=== PATIENT | male | born 1955 | race Two or more races ===

== ENCOUNTER 2020-03-26 03:15 | Inpatient (IN) | payer OTHER ==
[2020-03-26 03:24] VITALS: TEMP 98.3; BMI 32.8
[2020-03-26] MEDS ORDERED: FAMOTIDINE 20 MG TABLET PO ONE (04:08)
[2020-03-26] MEDS ORDERED: MAG HYDROX/AL HYDROX/SIMETH 30 ML UNIT-DOSE CUP PO ONE (04:08)
[2020-03-26] MEDS ORDERED: LIDOCAINE VISCOUS 2% ORAL/TOP 20 ML UNIT-DOSE CUP MM ONE (04:09)
[2020-03-26 04:28] LABS: BASO % 0.6 % (0-2.0); EOS % 2.4 % (0-4.5); HEMATOCRIT 38.6 % (35.4-49); LYMPH % 60.6 % (8-40); MCH 36.1 pg (25.7-33.7); MCHC 33.8 g/dl (32.0-35.9); MEAN CELL VOLUME 106.8 fl (80-96); MEAN PLT VOLUME 11.6 fl (7.5-11.1); MONO % 8.7 % (3.8-10.2); NEUT % 27.7 % (42.8-82.8); PLATELET COUNT 122 K/MM3 (134-434); RBC 3.61 M/mm3 (4.00-5.60); RDW 16.5 % (11.9-15.9); WHITE BLOOD COUNT 4.4 K/mm3 (4.0-10.0)
[2020-03-26 04:45] LABS: CHLORIDE 99 mmol/L (98-107); POTASSIUM 4.3 mmol/L (3.5-5.1); SODIUM 132 mmol/L (136-145)
[2020-03-26 04:47] LABS: ALBUMIN 3.7 g/dl (3.4-5.0); CALCIUM 8.5 mg/dL (8.5-10.1)
[2020-03-26 04:48] LABS: ANION GAP 7 MMOL/L (8-16); BLOOD UREA NITROGEN 13.5 mg/dL (7-18); CO2 26 mmol/L (21-32); GLUCOSE,RANDOM 165 mg/dL (74-106)
[2020-03-26 04:51] LABS: SGOT/AST 41 U/L (15-37)
[2020-03-26 04:52] LABS: BILIRUBIN,TOTAL 0.6 mg/dL (0.2-1); TOT PROT 7.8 g/dl (6.4-8.2)
[2020-03-26 04:53] LABS: ALK PHOS 64 U/L (45-117)
[2020-03-26 04:56] LABS: N-TERMINAL BNP 73.5 pg/ml (5-125)
[2020-03-26 05:44] LABS: LIPASE 198 U/L (73-393)
[2020-03-26 05:52] LABS: SGPT/ALT 47 U/L (13-61)
[2020-03-26 06:34] LABS: ANISOCYTOSIS 1+; MACROCYTOSIS 1+; PLATELET ESTIMATE DECREASED
[2020-03-26] MEDS ORDERED: LIDOCAINE VISCOUS 2% ORAL/TOP 20 ML UNIT-DOSE CUP ONE (06:48)
[2020-03-26] MEDS ORDERED: FAMOTIDINE 20 MG TABLET ONE (06:49)
[2020-03-26] MEDS ORDERED: MAG HYDROX/AL HYDROX/SIMETH 30 ML UNIT-DOSE CUP ONE (06:50)
[2020-03-26 09:30] LABS: LIPASE 152 U/L (73-393)
[2020-03-26] MEDS ORDERED: ENOXAPARIN NA (PORCINE) 40 MG/0.4 ML DISP.SYRIN SQ SCH (10:00)
[2020-03-26] MEDS ORDERED: PANTOPRAZOLE SODIUM 40 MG VIAL IVPUSH SCH (10:00)
[2020-03-26] MEDS ORDERED: ASPIRIN 81 MG CHEWABLE TABLETS PO SCH (10:00)
[2020-03-26] MEDS ORDERED: ASPIRIN 81 MG CHEWABLE TABLETS ONE (10:20)
[2020-03-26] MEDS ORDERED: PANTOPRAZOLE SODIUM 40 MG/100 ML BAG IVPB ONE (10:21)
[2020-03-26] MEDS ORDERED: ENOXAPARIN NA (PORCINE) 40 MG/0.4 ML DISP.SYRIN SQ ONE (10:21)
[2020-03-26 16:06] VITALS: BP 127/83; PULSE 74
== END 2020-03-26 15:30 | disposition left against medical advice (07) | DRG 392 ==
LOC: JER 03:15 → JERBED 05:18
PROVIDERS: ADMIT Internal Medicine; ATTEND Internal Medicine
DX: K21.9 Gastro-esophageal reflux disease without esophagitis (principal); I50.22 Chronic systolic (congestive) heart failure; R07.89 Other chest pain; I25.10 Atherosclerotic heart disease of native coronary artery without angina pectoris; Z95.1 Presence of aortocoronary bypass graft; E78.5 Hyperlipidemia, unspecified; E11.9 Type 2 diabetes mellitus without complications; E66.9 Obesity, unspecified; Z68.32 Body mass index [BMI] 32.0-32.9, adult; I11.0 Hypertensive heart disease with heart failure
CPT/HCPCS: 36415; 71046-TC-FY; 71275-TC; 74175-TC; 80053; 82550; 83690; 83880; 84484; 85025; 93005; 93010; 99285-25; C9803; Q9967; U0003